=== PATIENT | male | born 1960 | race Caucasian/White ===

== ENCOUNTER 2018-03-08 13:40 | Outpatient (CLI) | payer OTHER | END 2018-03-08 13:41 | disposition home or self-care (01) | LOC: BICRAD 13:40 | PROVIDERS: ATTEND Internal Medicine Rheumatology | DX: M05.79 Rheumatoid arthritis with rheumatoid factor of multiple sites without organ or systems involvement (principal) | CPT/HCPCS: 71046 ==

== ENCOUNTER 2018-07-12 12:14 | Outpatient (CLI) | payer OTHER ==
--- NOTE | 2018-07-12 14:53 | ULT ---
LIMITED SOFT TISSUE ULTRASOUND: Date: 07-12-18 Provided Clinical History: Left thigh pain. FINDINGS: Limited sonographic interrogation of the left distal thigh in the region of the patient's pain was pe rformed. There is a fluid collection at the medial aspect of the left popliteal fossa measuring about 3.7 cm that may reflect Arias's cyst. There is a complex circumscribed focus of altered echogenicity present at the lateral aspect of the popliteal region, atypical in location for Arias's cyst and inc ompletely characterized on the basis of this study. IMPRESSION: Complex cystic structure at the lateral aspect of the popliteal fossa, incompletely characterized on the basis of this examination. Correlation with MRI is recommended. POS: [facility]
== END 2018-07-12 12:15 | disposition home or self-care (01) ==
LOC: BICULT 12:14
PROVIDERS: ATTEND Orthopaedic Surgery
DX: M79.652 Pain in left thigh (principal); R93.7 Abnormal findings on diagnostic imaging of other parts of musculoskeletal system
CPT/HCPCS: 76999

== ENCOUNTER 2018-08-05 12:17 | Outpatient (CLI) | payer OTHER ==
[~2018-08-05 12:17] MED LIST: Gadobenate Dimeglumine 529 MG/1 ML (20ML VIAL) ONE
--- NOTE | 2018-08-05 16:32 | MRI ---
MRI DISTAL FEMUR WITH AND WITHOUT CONTRAST: Date: 08/05/18 COMPARISON: Ultrasound soft tissues 07/12/18. FINDINGS: Of note, this examination was no done as an internal derangement protocol, but was done as a soft tis marianne mass protocol. Corresponding to the ultrasound findings is a popliteal cyst containing debris which is dehisced with small volume fluid along the caudad margin of the popliteal cyst extending along the medial aspect o f the medial gastrocnemius. There is some mild strain of the popliteus myotendinous junction. Small joint effusion. ACL and PCL appear to be intact. Limited meniscal evaluation is unremarkable. IMPRESSION: 1. Corresponding to the recent ultrasonographic findings is a popliteal bursa formation with dehisce nce of leakage of fluid along the medial margin of the medial gastrocnemius muscle. 2. Low grade strain of the popliteus myotendinous junction. POS: [facility]
== END 2018-08-05 12:18 | disposition home or self-care (01) ==
LOC: BICMRI 12:17
PROVIDERS: ATTEND Orthopaedic Surgery
DX: M79.652 Pain in left thigh (principal); S76.912A Strain of unspecified muscles, fascia and tendons at thigh level, left thigh, initial encounter
CPT/HCPCS: A9577

== ENCOUNTER 2020-07-12 11:42 | Outpatient (CLI) | payer OTHER ==
--- NOTE | 2020-07-12 12:08 | RAD ---
XR Foot Rt 3 View STANDARD INDICATION: Right foot pain COMPARISON: None. FINDINGS: Bones: There is an accessory ossicle seen adjacent to the cuboid. No acute fracture or subluxation is evident. Joints: There is mild forefoot and midfoot osteoarthrosis. Lisfranc alignment: Lisfranc alignment appears within normal limits. Soft tissues: No soft tissue injury demonstrated. No radiographic foreign body demonstrated. IMPRESSION: No acute osseous abnormality.
== END 2020-07-12 11:43 | disposition home or self-care (01) ==
LOC: BICRAD 11:42
PROVIDERS: ATTEND Family Medicine
DX: M79.671 Pain in right foot (principal)

== ENCOUNTER 2021-11-20 16:12 | Outpatient (CLI) | payer OTHER ==
[2021-11-20 16:59] LABS: #Basophils 0.1 10x3/uL (0.0-0.2); #Eosinphils 0.4 10x3/uL (0.0-0.5); #Monocytes 0.6 10x3/uL (0.0-1.1); #Neutrophils 4.2 10x3/uL (1.5-8.4); %Basophils 0.8 % (0.0-2.0); %Eosinophils 5.5 % (0.0-6.0); %Lymphocytes 27.3 % (18.0-47.0); %Monocytes 7.7 % (0.0-10.0); %Neutrophils 58.4 % (40.0-75.0); Hemoglobin 15.3 g/dL (13.5-17.5); Mean Corpuscular Hemoglobin 29.7 pg (27.0-33.0); Mean Corpuscular Volume 89.9 fl (81.2-95.1); Platelet Count 273 10x3/uL (150-450); RBC Distribution Width 13.2 % (11.5-14.5); Red Blood Cell (RBC) Count 5.16 10x6/uL (4.32-5.72); White Blood Cell (WBC) Count 7.1 10x3/uL (3.5-10.5)
[2021-11-20 17:13] LABS: Anion Gap 13 mmol/L (10-20); BUN (Urea Nitrogen) 11 mg/dL (8.4-25.7); Calc. Creatinine Clearance 0 mL/min (70-130); Calcium 9.1 mg/dL (7.8-10.44); Carbon Dioxide 28 mmol/L (22-29); Chloride 104 mmol/L (98-107); Glucose 101 mg/dL (70-105); Potassium 3.8 mmol/L (3.5-5.1); Sodium 141 mmol/L (136-145)
[2021-11-21 00:18] LABS: SARS-CoV-2 PCR by NAA Not Detected (NotDetected)
== END 2021-11-20 16:13 | disposition home or self-care (01) ==
LOC: LABBT 16:12
PROVIDERS: ATTEND Orthopaedic Surgery Hand Surgery
DX: Z01.818 Encounter for other preprocedural examination (principal); M67.442 Ganglion, left hand; Z20.822 Contact with and (suspected) exposure to COVID-19
CPT/HCPCS: 80048; 85025; 93005; 93010; U0003; U0005